=== PATIENT | male | born 1980 | race Caucasian/White ===

== ENCOUNTER 2023-02-07 18:27 | Emergency (ER) | payer SELFPAY ==
[~2023-02-07] VITALS: Ht 188 cm; Wt 81.0 kg
[2023-02-07 18:34] VITALS: BP 94/70; O2SAT 97
[2023-02-07 23:57] VITALS: PULSE 80; RESP 20; TEMP 98.5
== END 2023-02-07 23:58 | disposition home or self-care (01) ==
LOC: ER 18:27
DX: S09.90XA Unspecified injury of head, initial encounter (principal); R58 Hemorrhage, not elsewhere classified; Y08.89XA Assault by other specified means, initial encounter; Y93.89 Activity, other specified; Y92.89 Other specified places as the place of occurrence of the external cause; Y99.8 Other external cause status
CPT/HCPCS: 99281